=== PATIENT | male | born 1975 | race Caucasian/White ===

== ENCOUNTER → 2023-09-03 | Outpatient (CLI) | payer BC ==
--- NOTE | 2023-09-03 16:00 | US ---
EXAMINATION TYPE: US kidneys/renal and bladder DATE OF EXAM: 09/03/2023 COMPARISON: NONE CLINICAL INDICATION: Male, 47 years old with history of R31.29 OTHER MICROSCOPIC HEMATURIA; Right kidney measures 15.7 cm, enlarged secondary to either multiple cysts or severe hydronephrosis. Left kidney measures 13.1 cm without hydronephrosis. No gross abnormality of the urine distended bladder. However, the right ureteral jet is not visualize d. IMPRESSION: Findings concerning for severe right-sided hydronephrosis, probably long-standing as the renal parenc hyma on the right appears to have thinned out/atrophied. Further clinical correlation/workup recommen ded.
== END | disposition home or self-care (01) ==
LOC: RADUSWWP 15:30
PROVIDERS: ATTEND Family Medicine
DX: R31.29 Other microscopic hematuria (principal)
CPT/HCPCS: 76770

== ENCOUNTER → 2023-09-13 | Outpatient (CLI) | payer BC ==
--- NOTE | 2023-09-27 17:11 | CT ---
EXAMINATION TYPE: CT abdomen pelvis wo con CT DLP: 648 mGycm, Automated exposure control for dose reduction was used. DATE OF EXAM: 09/13/2023 6:44 PM COMPARISON: Ultrasound kidneys 09/03/2023 CLINICAL INDICATION:Male, 47 years old with history of Kidney stone protocol N13.0 HYDRONEPHROSIS; Pr ior US showed right kidney nephrosis, patient states no symptoms TECHNIQUE: Axial CT of the abdomen and pelvis. Sagittal and coronal reformats were created on a retickr workstation. Contrast used: mL of , (none if empty) Oral contrast used: without Oral Contrast (none if empty) FINDINGS: LOWER CHEST: Unremarkable ABDOMEN LIVER: Unremarkable GALLBLADDER AND BILE DUCTS: Unremarkable gallbladder. No biliary ductal dilatation. PANCREAS: Unremarkable. SPLEEN: Unremarkable. ADRENAL GLANDS: Unremarkable. KIDNEYS AND URETERS: Left kidney appears essentially normal. The right kidney is essentially replaced by multiple low-attenuation structures with the appearance of cysts, many of which showing some laye ring milk of calcium. There may be a couple of 1-2 mm focal calcifications. What seems to be the dila jose renal pelvis shows abrupt transition at the UPJ best seen on coronal images, with a nondilated ur eter seen thereafter. Just proximal to this is a 2 mm calculus within the dilated renal pelvis. PELVIS BLADDER: Unremarkable REPRODUCTIVE: Unremarkable prostate ABDOMEN & PELVIS STOMACH AND BOWEL: Stomach is distended with heterogeneous material, likely food stuffs. Duodenal swe ep is unremarkable. No dilated loops of small bowel are seen. Appendix not visualized but no evidence of appendicitis. Mild to moderate stool throughout the colon without acute abnormality demonstrated. PERITONEUM/RETROPERITONEUM: No evidence of pneumoperitoneum or free fluid. VASCULATURE: Mild atherosclerotic calcifications are present throughout the abdominal aorta and its b ranches. No evidence of aortic aneurysm. Normal caliber IVC. LYMPH NODES: No enlarged nodes by CT size criteria. SOFT TISSUE/ABDOMINAL WALL: Unremarkable MUSCULOSKELETAL: No acute osseous abnormalities. Mild/moderate disc degeneration changes are present throughout the thoracolumbar spine with mild S-shaped scoliosis. Mild anterior wedging of T11 and T1 2, appears chronic. Mild/moderate degenerative change of the hips, right greater than left. IMPRESSION: 1. 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 Many of these show layering milk of calcium, plus there seem to be a couple small calcifications in the r egion of the kidney, and within the dilated renal pelvis. No obstructing stone is visualized. 2. Left kidney is unremarkable, without calculi or hydronephrosis.
== END | disposition home or self-care (01) ==
LOC: RADCTMAIN 18:28
PROVIDERS: ATTEND Urology
DX: N13.30 Unspecified hydronephrosis (principal)
CPT/HCPCS: 74176